=== PATIENT | male | born 1950 | race Caucasian/White ===

== ENCOUNTER 2016-11-11 18:53 | Emergency (ER) | payer MEDICARE ==
[2016-11-11] MEDS ORDERED: HYDROmorphone* 1 MG/ML 1 ML SYR IV ONE ×2 (20:43→22:32)
[2016-11-11] MEDS ORDERED: Ondansetron INJ* 2 MG/ML VIAL IV ONE (20:43)
[2016-11-11 21:01] LABS: Hematocrit 41 % (42-52); Hemoglobin 13.1 g/dl (14.0-18.0); Mean Corpuscular HGB Conc 32 g/dl (31-36); Mean Corpuscular Hemoglobin 29 pg (27-31); Mean Corpuscular Volume 90 fL (80-94); Mean Platelet Volume 8 um3 (7.4-10.4); Red Blood Count 4.52 10^6/ul (4.0-5.4); Red Cell Distribution Width 14 % (10.5-15); White Blood Count 12.8 10^3/ul (3.5-10.8)
[2016-11-11 21:08] LABS: Potassium 4.3 mmol/L (3.5-5.0)
[2016-11-11 21:09] LABS: Albumin 4.3 g/dL (3.2-5.2); BUN/Creatinine Ratio 17.9 (8-20); C Reactive Protein 15.13 mg/L (< 5.00); Calcium 10.5 mg/dL (8.6-10.3); EGFR African American 80.5 (>60); EGFR Non-African American 62.6 (>60); Globulin 4.1 g/dL (2-4); Total Bilirubin 0.4 mg/dL (0.2-1.0); Total Protein 8.4 g/dL (6.4-8.9)
--- NOTE | 2016-11-11 21:58 | RAD ---
Indication: Exquisite LEFT shoulder plain for approximate 2 weeks. Anticoagulated. Previous injury. Decreased range of motion. Comparison: No relevant prior exams available on the [facility] for comparison. Technique: Noncontrast CT LEFT shoulder. Multiplanar reformation. Report: The visualized LEFT lung is remarkable for interstitial fibrosis with peripheral honeycombing and emphysematous change. Negative for LEFT pleural effusion. Median sternotomy wires and postsurgical change of coronary artery bypass. Normal acromioclavicular and glenohumeral joint alignment. Suggestion of a small volume of fluid in the subacromial subdeltoid bursa and small glenohumeral joint effusion. No conspicuous fat fluid level. No fracture evident within the [id number]. Minimal acromioclavicular joint osteophytosis as well as subchondral sclerosis and cystic change. Cystic change at the lesser tuberosity of the humerus consistent with chronic subscapularis tendinopathy. Minimal osteophytosis at the glenohumeral joint. Negative for calcific tendinopathy. Negative for significant rotator cuff muscle atrophy. IMPRESSION: 1. Negative for fracture or dislocation. 2. No compelling evidence for hemarthrosis. 3. Stigmata of chronic subscapularis tendinopathy. 4. Mild acromioclavicular and glenohumeral joint osteoarthritis.
[2016-11-11] MEDS ORDERED: LORazepam INJ* 2 MG/ML 1 ML VIAL IV PUSH ONE (22:34)
[2016-11-11 23:00] VITALS: BP 101/64
[2016-11-11] MEDS ORDERED: oxyCODONE/Acetamin 5/325 MG* TAB PO ONE (23:09)
--- NOTE | 2016-11-11 23:12 | ED ---
Chasidy Bledsoe Alfonso, scribed for Mary Urban MD on 11/11/16 at 2023 . Upper Extremity Pain - HPI Summary HPI Summary: This patient is a 66 year old M presenting [place] [facility] accompanied by with a chief complaint of sharp left shoulder pain since this morning. Pt rates the pain 10/10 in severity. Sx aggravated by touch. Pt denies left bicep pain. He is retired. PMHx of CAD (quadruple bypass one month ago), HTN (prescribed Plavix for which he has since stopped taking), HLD, and DM. - History of Current Complaint Chief Complaint: EDExtremityUpper Stated Complaint: LEFT SHOULDER PAIN Time Seen by Provider: 11/11/16 20:03 Hx Obtained From: Patient Onset/Duration: Started Hours Ago - Earlier today, Still Present Timing: Constant Severity Initially: Severe Severity Currently: Severe Pain Location: Shoulder - Left, Other: - Not at left bicep Character: Sharp Aggravating Factor(s): Other - Touch. Associated Signs & Symptoms: Positive: Other - Negative left bicep pain. - Allergies/Home Medications Allergies/Adverse Reactions: Allergies Allergy/AdvReac Type Severity Reaction Status Date / Time Naproxen [From Aleve] Allergy Intermediate Hives Verified 11/11/16 19:09 PMH/Surg Hx/FS Hx/Imm Hx Endocrine/Hematology History: Reports: Hx Diabetes Denies: Hx Systemic Lupus Erythematosus Cardiovascular History: Reports: Hx Hypertension - controlled with meds Denies: Hx Congestive Heart Failure History: Denies: Hx Dialysis Musculoskeletal History: Denies: Hx Rheumatoid Arthritis - Surgical History Surgery Procedure, Year, and Place: gall bladder 2013 Infectious Disease History: No Infectious Disease History: Denies: Traveled Outside the [place] in Last 30 Days - Family History Known Family History: Positive: Cardiac Disease - Father, Diabetes - Father - Social History Occupation: Retired Alcohol Use: None Hx Substance Use: No Substance Use Type: Reports: None Hx Tobacco Use: No Smoking Status (MU): Never Smoked Tobacco Review of Systems Negative: Fever Positive: Other - Positive left shoulder pain; negative left bicep pain All Other Systems Reviewed And Are Negative: Yes Physical Exam Triage Information Reviewed: Yes Vital Signs On Initial Exam: Initial Vitals Temp Pulse Resp BP Pulse Ox 98.2 F 87 16 130/84 94 11/11/16 19:07 11/11/16 19:07 11/11/16 19:07 11/11/16 19:07 11/11/16 19:07 Vital Signs Reviewed: Yes Appearance: Positive: Well-Appearing, No Pain Distress Skin: Positive: Warm, Skin Color Reflects Adequate Perfusion, Dry Eyes: Positive: EOMI, ARACELI ENT: Positive: Pharynx normal, TMs normal Neck: Positive: Supple, Nontender Respiratory/Lung Sounds: Positive: Clear to Auscultation, Breath Sounds Present. Negative: Rales, Rhonchi, Wheezes Cardiovascular: Positive: RRR, Other - No gallop. Negative: Murmur, Rub Abdomen Description: Positive: Nontender, Soft, Other: - No rebound. Negative: Distended, Guarding Musculoskeletal: Positive: Strength/ROM Intact, Other - Exquisite tender left shoulder. Neurological: Positive: Sensory/Motor Intact, Alert, Oriented to Person Place, Time, CN Intact II-III - 2-12 Psychiatric: Positive: Affect/Mood Appropriate Diagnostics - Vital Signs Vital Signs Temp Pulse Resp BP Pulse Ox 11/11/16 20:04 98.8 F 85 20 160/77 96 11/11/16 19:07 98.2 F 87 16 130/84 94 - Laboratory Lab Results: Lab Results 11/11/16 11/11/16 Range/Units 20:35 20:35 WBC 12.8 H (3.5-10.8) 10^3/ul RBC 4.52 (4.0-5.4) 10^6/ul Hgb 13.1 L (14.0-18.0) g/dl Hct 41 L (42-52) % MCV 90 (80-94) fL MCH 29 (27-31) pg MCHC 32 (31-36) g/dl RDW 14 (10.5-15) % Plt Count 416 (150-450) 10^3/ul MPV 8 (7.4-10.4) um3 Neut % (Auto) 75.4 (38-83) % Lymph % (Auto) 15.1 L (25-47) % Dodge % (Auto) 7.4 (1-9) % Eos % (Auto) 1.7 (0-6) % Baso % (Auto) 0.4 (0-2) % Absolute Neuts (auto) 9.7 H (1.5-7.7) 10^3/ul Absolute Lymphs (auto) 1.9 (1.0-4.8) 10^3/ul Absolute Monos (auto) 0.9 H (0-0.8) 10^3/ul Absolute Eos (auto) 0.2 (0-0.6) 10^3/ul Absolute Basos (auto) 0.1 (0-0.2) 10^3/ul Absolute Nucleated RBC 0 10^3/ul Nucleated RBC % 0 Sodium 132 L (133-145) mmol/L Potassium 4.3 (3.5-5.0) mmol/L Chloride 95 L (101-111) mmol/L Carbon Dioxide 30 (22-32) mmol/L Anion Gap 7 (2-11) mmol/L BUN 21 (6-24) mg/dL Creatinine 1.17 (0.67-1.17) mg/dL Est GFR ( Amer) 80.5 (>60) Est GFR (Non-Af Amer) 62.6 (>60) BUN/Creatinine Ratio 17.9 (8-20) Glucose 188 H (70-100) mg/dL Calcium 10.5 H (8.6-10.3) mg/dL Total Bilirubin 0.40 (0.2-1.0) mg/dL AST 12 L (13-39) U/L ALT 11 (7-52) U/L Alkaline Phosphatase 104 (34-104) U/L C-Reactive Protein 15.13 H (< 5.00) mg/L Total Protein 8.4 (6.4-8.9) g/dL Albumin 4.3 (3.2-5.2) g/dL Globulin 4.1 H (2-4) g/dL Albumin/Globulin Ratio 1.0 (1-3) Result Diagrams: 11/11/16 20:35 11/11/16 20:35 Lab Statement: Any lab studies that have been ordered have been reviewed, and results considered in the medical decision making process. - CT Upper Extremity CT Interpretation Completed By: Radiologist - 1. Negative for fracture or dislocation. 2. No compelling evidence for hemarthrosis. 3. Stigmata of chronic subscapularis tendinopathy. 4. Mild acromioclavicular and glenohumeral joint osteoarthritis. - EKG 1900 Cardiac Rate: NL - BPM 86 EKG Rhythm: Sinus Rhythm EKG Interpretation: T-wave inversion anteriorly and generalized non-specific T- wave changes. Course/Dx - Course Course Of Treatment: Pt with exquisite left shoulder tenderness on blood thinners ct does not show an effusion, case discussed with Dr. Andrew due to concern for septic joint. Her recommendation was that without an effusion this was unlikely. She asked that pt call the office in the am and she will get pt in for an injection. Pt's pain was well controlled with 1mg of dilaudid and 0.5 mg of iv ativan. - Diagnoses Provider Diagnoses: Tendonitis - Physician Notifications Discussed Care of Patient With: Brandie Andrew Time Discussed With Above Provider: 11:04 Instructed by Provider To: Other - Consulted Dr. Andrew (orthopedic) who will see patient tomorrow morning. Discharge - Discharge Plan Condition: Stable Disposition: HOME Prescriptions: Cyclobenzaprine TAB* [Flexeril 10 MG TAB*] 10 mg PO TID PRN #30 tab PRN Reason: Pain oxyCODONE/Acetamin 5/325 MG* [Percocet 5/325 TAB*] 2 tab PO Q4H PRN #30 tab MDD 12 PRN Reason: Pain Patient Education Materials: Tendinitis (ED) Referrals: Ugo Hidalgo JR PA [Primary Care Provider] - 3 Days The documentation as recorded by the Chasidy schaffer Alfonso accurately reflects the service I personally performed and the decisions made by me, Mary Urban MD.
== END 2016-11-11 23:26 | disposition home or self-care (01) ==
LOC: ED 18:53
DX: M75.92 Shoulder lesion, unspecified, left shoulder (principal); I25.10 Atherosclerotic heart disease of native coronary artery without angina pectoris; Z79.02 Long term (current) use of antithrombotics/antiplatelets; E78.5 Hyperlipidemia, unspecified; E11.9 Type 2 diabetes mellitus without complications; I10 Essential (primary) hypertension
CPT/HCPCS: 36415; 80053; 85025; 86140; 93005; 96374; 96375; 96376; 99285; A9270-GY; J1170; J2060; J2405

== ENCOUNTER 2019-09-18 08:20 | Inpatient (IN) ==
[2019-09-18] MEDS ORDERED: Ondansetron 4 mg VIAL 2 MG/ML 2 ml VIAL IV ONE (08:36)
[2019-09-18] MEDS ORDERED: NS 0.9% 1000 ml BAG 1,000 ML IV ONE (08:36)
[2019-09-18] MEDS ORDERED: Morphine 4 MG/ML VIAL (1 ml) IV ONE ×2 (08:36→11:36)
[2019-09-18 09:58] LABS: ABS Lymphocytes 0.5 10^3/ul (1.0-4.8); ABS Monocytes 0.5 10^3/ul (0-0.8); Hematocrit 43 % (42-52); Hemoglobin 14.7 g/dL (14.0-18.0); Lymphocyte % 3.5 %; Mean Corpuscular HGB Conc 34 g/dL (31-36); Mean Corpuscular Hemoglobin 31 pg (27-31); Mean Corpuscular Volume 90 fL (80-94); Mean Platelet Volume 7.8 fL (7.4-10.4); Platelet Count 347 10^3/uL (150-450); Red Blood Count 4.78 10^6 /uL (4.18-5.48); Red Cell Distribution Width 14 % (10-15); White Blood Count 14.6 10^3/uL (3.5-10.8)
[2019-09-18 10:16] LABS: Albumin 3.8 g/dL (3.2-5.2); Albumin/Globulin Ratio 1.2 (1-3); BUN/Creatinine Ratio 19.4 (8-20); Calcium 9.3 mg/dL (8.6-10.3); EGFR African American 86.9 (>60); EGFR Non-African American 71.8 (>60); Globulin 3.3 g/dL (2-4); Potassium 4.4 mmol/L (3.5-5.0); Total Bilirubin 0.7 mg/dL (0.2-1.0); Total Protein 7.1 g/dL (6.4-8.9)
[2019-09-18] MEDS ORDERED: Iodixanol (CONTRAST) 320 MG/ML 100 ML SDV IV ONE (10:25)
[2019-09-18] MEDS ORDERED: Piperacillin/Tazobac ADVAN(*) 3.375 GM in NS 0.9% 100 ml BAG 100 ML IVPB ONE (11:31)
[2019-09-18 12:33] LABS: Magnesium 1.3 mg/dL (1.9-2.7)
[2019-09-18] MEDS ORDERED: Magnesium Sulfate 2 gm BAG 2 GM/50 ML BAG IVPB ONE (12:34)
[2019-09-18] MEDS ORDERED: Magnesium Sulf 4 GM/100 ML IV 4,000 MG/100 ML BAG IVPB ONE (12:37)
[2019-09-18] MEDS ORDERED: Zosyn per Pharmacy NOTE FOLLOW UP SCH (13:00)
[2019-09-18 13:04] LABS: Troponin I 0.03 ng/mL (<0.03)
[2019-09-18] MEDS: Aspirin EC 81 mg TAB.EC (enteric coated) PO SCH (13:58)
[2019-09-18] MEDS: ACIDOPH PARACASEI B LACTIS PO SCH (14:00)
[2019-09-18] MEDS: Multivitamins/Mins AREDS2 (NF) CAP PO SCH (14:00)
[2019-09-18] MEDS: ZOSYN 3.375 GM Q8H per EXTENDED INFUSION IV SCH (16:51)
[2019-09-18] MEDS ORDERED: Senna TAB 8.6 mg TAB PO PRN (17:25)
[2019-09-18] MEDS: Insulin LISPRO 100 units/ml(*) SUBCUT SCH (17:41)
[2019-09-18] MEDS: Morphine 2 MG/ML SYRINGE IV PRN ×2 (17:42→21:50)
[2019-09-19] MEDS: Insulin LISPRO 100 units/ml(*) SUBCUT SCH ×4 (00:04→17:45)
[2019-09-19] MEDS: ZOSYN 3.375 GM Q8H per EXTENDED INFUSION IV SCH ×3 (00:30→17:44)
[2019-09-19] MEDS: Morphine 2 MG/ML SYRINGE IV PRN (03:07)
[2019-09-19 06:20] LABS: ABS Monocytes 0.5 10^3/ul (0-0.8); Hematocrit 39 % (42-52); Hemoglobin 13.3 g/dL (14.0-18.0); Lymphocyte % 6.4 %; Mean Corpuscular HGB Conc 34 g/dL (31-36); Mean Corpuscular Hemoglobin 31 pg (27-31); Mean Corpuscular Volume 90 fL (80-94); Mean Platelet Volume 7.2 fL (7.4-10.4); Platelet Count 270 10^3/uL (150-450); Red Blood Count 4.34 10^6 /uL (4.18-5.48); Red Cell Distribution Width 14 % (10-15); White Blood Count 14.8 10^3/uL (3.5-10.8)
[2019-09-19 06:36] LABS: Troponin I 0.02 ng/mL (<0.03)
[2019-09-19] MEDS ORDERED: Morphine 2 MG/ML SYRINGE IV PRN (07:59)
[2019-09-19 08:19] LABS: Calcium 8.4 mg/dL (8.6-10.3); Potassium 4.5 mmol/L (3.5-5.0)
[2019-09-19 08:24] LABS: BUN/Creatinine Ratio 16.4 (8-20); EGFR African American 50.4 (>60); EGFR Non-African American 41.7 (>60)
[2019-09-19] MEDS: Aspirin EC 81 mg TAB.EC (enteric coated) PO SCH (08:37)
[2019-09-19] MEDS: ACIDOPH PARACASEI B LACTIS PO SCH (08:38)
[2019-09-19] MEDS: Multivitamins/Mins AREDS2 (NF) CAP PO SCH (08:38)
[2019-09-19] MEDS ORDERED: Furosemide 40 mg/4 ml IV VIAL IV SLOW PU ONE (11:11)
[2019-09-19] MEDS ORDERED: Dextrose 50% Syringe 50 ml 25 GM/50 ML SYRINGE IV PUSH PRN (15:25)
[2019-09-19 16:18] LABS: Albumin 3.2 g/dL (3.2-5.2); BUN/Creatinine Ratio 19.3 (8-20); Calcium 8.1 mg/dL (8.6-10.3); EGFR African American 43.7 (>60); EGFR Non-African American 36.1 (>60); Globulin 3.2 g/dL (2-4); Potassium 4.3 mmol/L (3.5-5.0); Total Bilirubin 0.9 mg/dL (0.2-1.0); Total Protein 6.4 g/dL (6.4-8.9)
[2019-09-19] MEDS ORDERED: Furosemide 40 mg/4 ml IV VIAL IV ONE (16:34)
[2019-09-19] MEDS ORDERED: Iodixanol (CONTRAST) 320 MG/ML 100 ML SDV IV ONE (16:51)
[2019-09-19 17:55] LABS: Amylase < 10 U/L (29-103)
[2019-09-20] MEDS ORDERED: Lactated Ringers 1000 ml BAG 1,000 ML IV SCH ×2 (01:00→10:44)
[2019-09-20 01:06] LABS: Hematocrit 36 % (42-52); Hemoglobin 12.2 g/dL (14.0-18.0); Mean Corpuscular HGB Conc 34 g/dL (31-36); Mean Corpuscular Hemoglobin 30 pg (27-31); Mean Corpuscular Volume 90 fL (80-94); Mean Platelet Volume 7.4 fL (7.4-10.4); Platelet Count 248 10^3/uL (150-450); Red Blood Count 4.03 10^6 /uL (4.18-5.48); Red Cell Distribution Width 14 % (10-15); White Blood Count 16.9 10^3/uL (3.5-10.8)
[2019-09-20 01:22] LABS: Albumin 3.1 g/dL (3.2-5.2); BUN/Creatinine Ratio 19.9 (8-20); Calcium 8.2 mg/dL (8.6-10.3); EGFR African American 40.2 (>60); EGFR Non-African American 33.2 (>60); Potassium 4.1 mmol/L (3.5-5.0); Total Bilirubin 0.8 mg/dL (0.2-1.0); Total Protein 6.1 g/dL (6.4-8.9)
[2019-09-20 01:38] LABS: Magnesium 1.9 mg/dL (1.9-2.7)
[2019-09-20 01:39] LABS: ABS Lymphocytes 0.7 10^3/ul (1.0-4.8); ABS Monocytes 0.5 10^3/ul (0-0.8); Lymphocyte % 4.1 %
[2019-09-20] MEDS: Lactated Ringers 1000 ml BAG 1,000 ML IV SCH ×3 (02:02→05:27)
[2019-09-20] MEDS ORDERED: NS 0.9% 1000 ML/HR X 1 BAG (TOTAL 1000 ML) IV ONE (02:45)
[2019-09-20 03:00] LABS: Urine Appearance Cloudy; Urine Bilirubin Negative (Negative); Urine Blood Negative (Negative); Urine Color Yellow; Urine Glucose Negative (Negative); Urine Ketones Negative (Negative); Urine Nitrite Negative (Negative); Urine Protein Negative (Negative); Urine Specific Gravity 1.031 (1.010-1.030); Urine Urobilinogen Negative (Negative)
[2019-09-20] MEDS ORDERED: Lactated Ringers 1000 ml BAG 1,000 ML IV ONE ×2 (03:00→05:00)
[2019-09-20 05:48] LABS: ABS Lymphocytes 0.7 10^3/ul (1.0-4.8); ABS Monocytes 0.6 10^3/ul (0-0.8); Hematocrit 34 % (42-52); Hemoglobin 11.5 g/dL (14.0-18.0); Lymphocyte % 4.7 %; Mean Corpuscular HGB Conc 33 g/dL (31-36); Mean Corpuscular Hemoglobin 30 pg (27-31); Mean Corpuscular Volume 90 fL (80-94); Platelet Count 196 10^3/uL (150-450); Red Cell Distribution Width 14 % (10-15); White Blood Count 14.8 10^3/uL (3.5-10.8)
[2019-09-20] MEDS ORDERED: Norepinephrine 16MCG/ML IVPRE 4,000 MCG/250 ML BAG IV SCH ×2 (06:00→10:41)
[2019-09-20 06:03] LABS: BUN/Creatinine Ratio 20.4 (8-20); Calcium 7.8 mg/dL (8.6-10.3); EGFR African American 43.9 (>60); EGFR Non-African American 36.3 (>60); Potassium 4.1 mmol/L (3.5-5.0)
[2019-09-20] MEDS ORDERED: Insulin GLARGINE 100 un/ml (*) 10 ml VIAL SUBCUT SCH (09:00)
[2019-09-20] MEDS ORDERED: Furosemide 40 mg/4 ml IV VIAL IV SCH (09:00)
[2019-09-20] MEDS: Insulin LISPRO 100 units/ml(*) SUBCUT SCH ×2 (09:14→18:08)
[2019-09-20] MEDS: ACIDOPH PARACASEI B LACTIS PO SCH (09:15)
[2019-09-20] MEDS: Multivitamins/Mins AREDS2 (NF) CAP PO SCH (09:16)
[2019-09-20] MEDS: Aspirin EC 81 mg TAB.EC (enteric coated) PO SCH (09:16)
[2019-09-20] MEDS: ZOSYN 3.375 GM Q8H per EXTENDED INFUSION IV SCH ×3 (09:23→19:48)
[2019-09-20] MEDS ORDERED: fentaNYL 250 mcg/5 ml 50 MCG/ML 5 ml VIAL (250 MCG) ONE (10:38)
[2019-09-20] MEDS ORDERED: Midazolam 2 mg/2 ml VIAL 1 mg/ml 2 ml VIAL (2 mg) ONE (10:38)
[2019-09-20] MEDS ORDERED: Rocuronium 50 mg VIAL 10 mg/ml 5 ml VIAL (50 mg) ONE ×2 (10:38→10:39)
[2019-09-20] MEDS ORDERED: Propofol 10 MG/ML 20 ML BTL ONE ×2 (10:38→14:40)
[2019-09-20] MEDS ORDERED: Lidocaine 2% PF 5 ML VIAL ONE ×2 (10:38→11:24)
[2019-09-20] MEDS ORDERED: Succinylcholine 200 mg VIAL 20 mg/ml 10 ml VIAL (200 mg) ONE (10:44)
[2019-09-20] MEDS ORDERED: Bupivacaine 0.25% EPI 200,000 30 ML SDV ONE (10:47)
[2019-09-20] MEDS ORDERED: EPHEDrine (Pressors) 50 MG/ML VIAL ONE (10:47)
[2019-09-20] MEDS ORDERED: Sodium Chloride 0.9% 10 ML ONE (10:47)
[2019-09-20] MEDS ORDERED: Phenylephrine IV 10 MG/ML 1 ml VIAL ONE (10:47)
[2019-09-20] MEDS ORDERED: Etomidate 20 mg/10 ml 2 MG/ML 10 ml VIAL ONE (11:26)
[2019-09-20] MEDS ORDERED: Insulin LISPRO 100 units/ml(*) SUBCUT SCH (11:33)
[2019-09-20] MEDS ORDERED: HYDROmorphone 1 MG/1 ML SYRINGE ONE (13:45)
[2019-09-20] MEDS ORDERED: Propofol 10 mg/ml 100 ML BTL 100 ML ONE (15:07)
[2019-09-20] MEDS ORDERED: NS 0.9% 500 ml BAG 500 ML IV PRN (15:28)
[2019-09-20] MEDS: Propofol 10 mg/ml 100 ML BTL 100 ML IV SCH ×3 (18:08→23:54)
[2019-09-20] MEDS: Heparin 5000 UNITS/ML VIAL(*) 1 ml vial SUBCUT SCH ×2 (18:08→22:42)
[2019-09-20] MEDS: NS 0.9% 1000 ml BAG 1,000 ML IV SCH (18:09)
[2019-09-20] MEDS: HYDROmorphone 1 MG/1 ML SYRINGE IV PRN (20:15)
[2019-09-20] MEDS ORDERED: Dextran 70/Hypromellose Tears Eye Drops 15 ml BTL (for Artificials Tears) BOTH EYES PRN (22:31)
[2019-09-20] MEDS: Chlorhexidine MOUTHWASH 0.12% 15 ML UDC TOPICAL SCH ×3 (22:41→22:42)
[2019-09-21] MEDS: Insulin LISPRO 100 units/ml(*) SUBCUT SCH ×5 (00:09→18:29)
[2019-09-21] MEDS: HYDROmorphone 1 MG/1 ML SYRINGE IV PRN ×2 (00:12→05:26)
[2019-09-21] MEDS: Propofol 10 mg/ml 100 ML BTL 100 ML IV SCH ×2 (03:19→07:44)
[2019-09-21] MEDS: ZOSYN 3.375 GM Q8H per EXTENDED INFUSION IV SCH ×3 (03:20→20:03)
[2019-09-21] MEDS: Chlorhexidine MOUTHWASH 0.12% 15 ML UDC TOPICAL SCH ×4 (03:22→16:43)
[2019-09-21] MEDS: NS 0.9% 1000 ml BAG 1,000 ML IV SCH (05:28)
[2019-09-21 05:38] LABS: ABS Eosinophils 0.1 10^3/ul (0-0.6); ABS Monocytes 0.6 10^3/ul (0-0.8); Eosinophil % 0.5 %; Hematocrit 33 % (42-52); Mean Corpuscular HGB Conc 34 g/dL (31-36); Mean Corpuscular Hemoglobin 30 pg (27-31); Mean Corpuscular Volume 90 fL (80-94); Mean Platelet Volume 7.4 fL (7.4-10.4); Platelet Count 207 10^3/uL (150-450); Red Blood Count 3.64 10^6 /uL (4.18-5.48); Red Cell Distribution Width 14 % (10-15); White Blood Count 11.6 10^3/uL (3.5-10.8)
[2019-09-21] MEDS: Heparin 5000 UNITS/ML VIAL(*) 1 ml vial SUBCUT SCH ×2 (05:42→14:45)
[2019-09-21 06:02] LABS: BUN/Creatinine Ratio 22.4 (8-20); Calcium 8.2 mg/dL (8.6-10.3); EGFR African American 55.5 (>60); EGFR Non-African American 45.8 (>60); Phosphorus 3.6 mg/dL (2.5-5.0); Potassium 4.1 mmol/L (3.5-5.0)
[2019-09-21] MEDS: Pantoprazole VIAL 40 MG VIAL IV SCH (08:27)
[2019-09-21] MEDS: Morphine 2 MG/ML SYRINGE IV PRN (15:20)
[2019-09-22] MEDS: Heparin 5000 UNITS/ML VIAL(*) 1 ml vial SUBCUT SCH ×4 (00:46→21:28)
[2019-09-22] MEDS: Insulin LISPRO 100 units/ml(*) SUBCUT SCH ×4 (00:53→18:24)
[2019-09-22] MEDS: NS 0.9% 1000 ml BAG 1,000 ML IV SCH (01:57)
[2019-09-22] MEDS: ZOSYN 3.375 GM Q8H per EXTENDED INFUSION IV SCH ×3 (04:23→21:03)
[2019-09-22 04:52] LABS: ABS Lymphocytes 0.9 10^3/ul (1.0-4.8); ABS Monocytes 0.5 10^3/ul (0-0.8); Eosinophil % 0.2 %; Hematocrit 33 % (42-52); Hemoglobin 11.2 g/dL (14.0-18.0); Mean Corpuscular HGB Conc 34 g/dL (31-36); Mean Corpuscular Hemoglobin 31 pg (27-31); Mean Corpuscular Volume 90 fL (80-94); Mean Platelet Volume 7.6 fL (7.4-10.4); Nucleated Red Blood Cells % 0.1; Platelet Count 226 10^3/uL (150-450); Red Blood Count 3.64 10^6 /uL (4.18-5.48); Red Cell Distribution Width 14 % (10-15); White Blood Count 9.5 10^3/uL (3.5-10.8)
[2019-09-22 05:09] LABS: BUN/Creatinine Ratio 20.2 (8-20); Calcium 8.3 mg/dL (8.6-10.3); EGFR African American 85.9 (>60); Potassium 4.1 mmol/L (3.5-5.0)
[2019-09-22] MEDS: Pantoprazole VIAL 40 MG VIAL IV SCH (08:42)
[2019-09-22] MEDS: Morphine 2 MG/ML SYRINGE IV PRN ×2 (09:45→15:51)
[2019-09-22 11:57] LABS: Troponin I 0.03 ng/mL (<0.03)
[2019-09-22] MEDS ORDERED: D5W 1/2 NS KCl 20 meq 1000 ml 1,000 ML IV SCH (12:00)
[2019-09-22 12:04] LABS: Magnesium 1.8 mg/dL (1.9-2.7)
[2019-09-22] MEDS: Metoprolol Tartrate 5 mg VIAL 5 ml VIAL (1 mg/ml) IV SCH ×2 (12:51→18:47)
[2019-09-22] MEDS ORDERED: Magnesium Sulfate IV 3 GM in NS 0.9% 100 ml BAG 100 ML IVPB ONE (18:31)
[2019-09-23] MEDS: Metoprolol Tartrate 5 mg VIAL 5 ml VIAL (1 mg/ml) IV SCH ×5 (00:35→23:31)
[2019-09-23] MEDS: Insulin LISPRO 100 units/ml(*) SUBCUT SCH ×5 (00:45→23:30)
[2019-09-23 00:51] LABS: Troponin I 0.03 ng/mL (<0.03)
[2019-09-23] MEDS: Ondansetron 4 mg VIAL 2 MG/ML 2 ml VIAL IV PRN (01:32)
[2019-09-23] MEDS: ZOSYN 3.375 GM Q8H per EXTENDED INFUSION IV SCH ×3 (05:58→19:42)
[2019-09-23] MEDS: Heparin 5000 UNITS/ML VIAL(*) 1 ml vial SUBCUT SCH ×3 (06:23→22:02)
[2019-09-23 06:40] LABS: ABS Eosinophils 0.1 10^3/ul (0-0.6); ABS Lymphocytes 1.1 10^3/ul (1.0-4.8); ABS Monocytes 0.6 10^3/ul (0-0.8); Eosinophil % 1.9 %; Hematocrit 34 % (42-52); Hemoglobin 11.4 g/dL (14.0-18.0); Lymphocyte % 15.2 %; Mean Corpuscular HGB Conc 34 g/dL (31-36); Mean Corpuscular Hemoglobin 31 pg (27-31); Mean Corpuscular Volume 91 fL (80-94); Mean Platelet Volume 7.4 fL (7.4-10.4); Platelet Count 237 10^3/uL (150-450); Red Blood Count 3.73 10^6 /uL (4.18-5.48); Red Cell Distribution Width 14 % (10-15); White Blood Count 7.3 10^3/uL (3.5-10.8)
[2019-09-23 07:04] LABS: BUN/Creatinine Ratio 15.5 (8-20); Calcium 8.6 mg/dL (8.6-10.3); EGFR Non-African American 90.9 (>60); Potassium 4.1 mmol/L (3.5-5.0)
[2019-09-23] MEDS: Pantoprazole VIAL 40 MG VIAL IV SCH (08:20)
[2019-09-23 10:06] LABS: Phosphorus 2.4 mg/dL (2.5-5.0)
[2019-09-23] MEDS: D5W 1/2 NS KCl 20 meq 1000 ml 1,000 ML IV SCH (13:14)
[2019-09-23] MEDS: Morphine 2 MG/ML SYRINGE IV PRN ×2 (17:11→23:21)
[2019-09-24] MEDS: ZOSYN 3.375 GM Q8H per EXTENDED INFUSION IV SCH ×2 (03:46→13:26)
[2019-09-24] MEDS: D5W 1/2 NS KCl 20 meq 1000 ml 1,000 ML IV SCH (03:46)
[2019-09-24] MEDS: Heparin 5000 UNITS/ML VIAL(*) 1 ml vial SUBCUT SCH ×2 (06:20→13:15)
[2019-09-24] MEDS: Metoprolol Tartrate 5 mg VIAL 5 ml VIAL (1 mg/ml) IV SCH ×2 (06:29→13:15)
[2019-09-24] MEDS: Morphine 2 MG/ML SYRINGE IV PRN (06:29)
[2019-09-24 06:35] LABS: ABS Eosinophils 0.2 10^3/ul (0-0.6); ABS Lymphocytes 1.2 10^3/ul (1.0-4.8); ABS Monocytes 0.7 10^3/ul (0-0.8); Eosinophil % 3.4 %; Hematocrit 33 % (42-52); Hemoglobin 11.2 g/dL (14.0-18.0); Lymphocyte % 17.3 %; Mean Corpuscular HGB Conc 34 g/dL (31-36); Mean Corpuscular Hemoglobin 31 pg (27-31); Mean Corpuscular Volume 90 fL (80-94); Mean Platelet Volume 6.9 fL (7.4-10.4); Nucleated Red Blood Cells % 0.2; Platelet Count 271 10^3/uL (150-450); Red Blood Count 3.66 10^6 /uL (4.18-5.48); Red Cell Distribution Width 13 % (10-15); White Blood Count 7.1 10^3/uL (3.5-10.8)
[2019-09-24 06:51] LABS: BUN/Creatinine Ratio 11.1 (8-20); Calcium 8.4 mg/dL (8.6-10.3); EGFR African American 114.7 (>60); EGFR Non-African American 94.8 (>60); Magnesium 1.5 mg/dL (1.9-2.7); Potassium 3.8 mmol/L (3.5-5.0)
[2019-09-24] MEDS: Insulin LISPRO 100 units/ml(*) SUBCUT SCH ×4 (07:02→20:11)
[2019-09-24] MEDS ORDERED: Magnesium Sulf 4 GM/100 ML IV 4,000 MG/100 ML BAG IVPB ONE (07:07)
[2019-09-24] MEDS: Pantoprazole VIAL 40 MG VIAL IV SCH (08:15)
[2019-09-24] MEDS ORDERED: Furosemide 20 mg/2 ml IV VIAL IV SLOW PU ONE (13:11)
[2019-09-24] MEDS ORDERED: Enoxaparin 40 MG/0.4 ML SYR(*) SUBCUT SCH (14:00)
[2019-09-24] MEDS: Enoxaparin 40 MG/0.4 ML SYR(*) SUBCUT SCH (20:11)
[2019-09-25 06:20] LABS: BUN/Creatinine Ratio 10.4 (8-20); Calcium 8.5 mg/dL (8.6-10.3); EGFR African American 121.6 (>60); EGFR Non-African American 100.5 (>60); Magnesium 1.7 mg/dL (1.9-2.7); Potassium 3.9 mmol/L (3.5-5.0)
[2019-09-25] MEDS: Insulin LISPRO 100 units/ml(*) SUBCUT SCH ×4 (07:33→21:11)
[2019-09-25] MEDS: Pantoprazole VIAL 40 MG VIAL IV SCH (08:18)
[2019-09-25] MEDS ORDERED: Magnesium Sulfate 2 gm BAG 2 GM/50 ML BAG IVPB ONE (17:25)
[2019-09-25] MEDS: Enoxaparin 40 MG/0.4 ML SYR(*) SUBCUT SCH (20:34)
[2019-09-26] MEDS: Ondansetron 4 mg VIAL 2 MG/ML 2 ml VIAL IV PRN (02:57)
[2019-09-26 08:15] LABS: ABS Eosinophils 0.2 10^3/ul (0-0.6); ABS Lymphocytes 1.4 10^3/ul (1.0-4.8); ABS Monocytes 0.6 10^3/ul (0-0.8); Eosinophil % 2.4 %; Hematocrit 34 % (42-52); Hemoglobin 11.4 g/dL (14.0-18.0); Lymphocyte % 18.8 %; Mean Corpuscular HGB Conc 34 g/dL (31-36); Mean Corpuscular Hemoglobin 30 pg (27-31); Mean Corpuscular Volume 89 fL (80-94); Mean Platelet Volume 7.2 fL (7.4-10.4); Nucleated Red Blood Cells % 0.1; Platelet Count 388 10^3/uL (150-450); Red Blood Count 3.78 10^6 /uL (4.18-5.48); Red Cell Distribution Width 14 % (10-15); White Blood Count 7.3 10^3/uL (3.5-10.8)
[2019-09-26 08:33] LABS: BUN/Creatinine Ratio 10.1 (8-20); Calcium 8.6 mg/dL (8.6-10.3); EGFR Non-African American 97.5 (>60); Magnesium 1.6 mg/dL (1.9-2.7)
[2019-09-26] MEDS: Insulin LISPRO 100 units/ml(*) SUBCUT SCH ×2 (09:01→11:33)
[2019-09-26] MEDS: Pantoprazole VIAL 40 MG VIAL IV SCH (09:15)
[2019-09-26 13:40] VITALS: BP 155/57
== END 2019-09-26 02:20 | disposition home or self-care (01) | DRG 329 ==
LOC: ED 08:20 → MED 11:51 → ICU 09-20 00:24 → SSU 09-21 22:42 → MEDTELE 09-22 11:51
PROVIDERS: ADMIT Internal Medicine; ATTEND Surgery

== ENCOUNTER 2019-10-16 19:40 | Inpatient (IN) ==
[2019-10-16 20:49] LABS: ABS Basophils 0.1 10^3/ul (0-0.2); ABS Eosinophils 0.2 10^3/ul (0-0.6); ABS Lymphocytes 1.9 10^3/ul (1.0-4.8); Eosinophil % 1.1 %; Hematocrit 34 % (42-52); Hemoglobin 11.8 g/dL (14.0-18.0); Lymphocyte % 11.8 %; Mean Corpuscular HGB Conc 35 g/dL (31-36); Mean Corpuscular Hemoglobin 30 pg (27-31); Mean Corpuscular Volume 86 fL (80-94); Mean Platelet Volume 6.8 fL (7.4-10.4); Platelet Count 477 10^3/uL (150-450); Red Blood Count 3.95 10^6 /uL (4.18-5.48); Red Cell Distribution Width 15 % (10-15); White Blood Count 16.2 10^3/uL (3.5-10.8)
[2019-10-16 20:56] LABS: INR 1.36 (0.82-1.09)
[2019-10-16 21:07] LABS: Albumin 3.1 g/dL (3.2-5.2); Albumin/Globulin Ratio 0.8 (1-3); C Reactive Protein 168.28 mg/L (<8.01); Calcium 9.2 mg/dL (8.6-10.3); EGFR Non-African American 90.9 (>60); Globulin 4.1 g/dL (2-4); Potassium 4.2 mmol/L (3.5-5.0); Total Bilirubin 0.4 mg/dL (0.2-1.0); Total Protein 7.2 g/dL (6.4-8.9)
[2019-10-16] MEDS ORDERED: NS 0.9% 1000 ml BAG 1,000 ML IV ONE (21:20)
[2019-10-16] MEDS ORDERED: Iodixanol (CONTRAST) 320 MG/ML 100 ML SDV IV ONE (21:27)
[2019-10-16 22:28] LABS: Activated Partial Thrombo Time 33.6 seconds (26.0-38.0)
[2019-10-17] MEDS ORDERED: Piperacillin/Tazobac ADVAN(*) 3.375 GM in NS 0.9% 100 ml BAG 100 ML IVPB ONE ×2 (00:22→01:49)
[2019-10-17 00:59] LABS: Urine Appearance Clear; Urine Bilirubin Negative (Negative); Urine Blood Negative (Negative); Urine Color Yellow; Urine Glucose Negative (Negative); Urine Ketones Negative (Negative); Urine Nitrite Negative (Negative); Urine Protein 1+(30 mg/dL) (Negative); Urine Specific Gravity 1.026 (1.010-1.030); Urine Urobilinogen Negative (Negative)
[2019-10-17 01:12] LABS: Urine Bacteria Absent (Absent); Urine Red Blood Cell Trace(0-2/hpf) (Absent); Urine White Blood Cell Trace(0-5/hpf) (Absent)
[2019-10-17] MEDS ORDERED: Dextrose 50% Syringe 50 ml 25 GM/50 ML SYRINGE IV PUSH PRN (01:34)
[2019-10-17] MEDS ORDERED: Metoprolol Tartrate 5 mg VIAL 5 ml VIAL (1 mg/ml) IV SCH (02:00)
[2019-10-17] MEDS ORDERED: Zosyn per Pharmacy NOTE FOLLOW UP SCH (02:00)
[2019-10-17 02:38] LABS: Magnesium 1.4 mg/dL (1.9-2.7)
[2019-10-17] MEDS: ZOSYN 3.375 GM Q8H per EXTENDED INFUSION IV SCH ×3 (05:41→22:07)
[2019-10-17] MEDS: Insulin LISPRO 100 units/ml(*) SUBCUT SCH ×3 (05:55→18:08)
[2019-10-17] MEDS: Metoprolol Tartrate 5 mg VIAL 5 ml VIAL (1 mg/ml) IV SCH ×3 (06:41→18:19)
[2019-10-17] MEDS ORDERED: Magnesium Sulfate 2 gm BAG 2 GM/50 ML BAG IVPB ONE (08:19)
[2019-10-17] MEDS ORDERED: fentaNYL 100 mcg/2 ml 50 MCG/ML VIAL ONE (12:58)
[2019-10-18] MEDS: Insulin LISPRO 100 units/ml(*) SUBCUT SCH ×3 (00:24→13:04)
[2019-10-18] MEDS: Metoprolol Tartrate 5 mg VIAL 5 ml VIAL (1 mg/ml) IV SCH ×3 (00:25→13:04)
[2019-10-18 05:27] LABS: ABS Eosinophils 0.4 10^3/ul (0-0.6); ABS Lymphocytes 1.6 10^3/ul (1.0-4.8); ABS Monocytes 0.5 10^3/ul (0-0.8); Eosinophil % 3.8 %; Hematocrit 29 % (42-52); Hemoglobin 10.2 g/dL (14.0-18.0); Lymphocyte % 16.1 %; Mean Corpuscular HGB Conc 35 g/dL (31-36); Mean Corpuscular Hemoglobin 30 pg (27-31); Mean Corpuscular Volume 86 fL (80-94); Mean Platelet Volume 7.2 fL (7.4-10.4); Platelet Count 425 10^3/uL (150-450); Red Blood Count 3.41 10^6 /uL (4.18-5.48); Red Cell Distribution Width 15 % (10-15); White Blood Count 9.6 10^3/uL (3.5-10.8)
[2019-10-18] MEDS: ZOSYN 3.375 GM Q8H per EXTENDED INFUSION IV SCH (06:02)
[2019-10-18] MEDS ORDERED: Morphine 2 MG/ML SYRINGE IV PRN (11:00)
[2019-10-18 11:40] VITALS: BP 146/66
[2019-10-18 13:43] LABS: BUN/Creatinine Ratio 15.5 (8-20); EGFR Non-African American 90.9 (>60); Potassium 4.4 mmol/L (3.5-5.0)
== END 2019-10-18 14:30 | disposition home or self-care (01) | DRG 373 ==
LOC: ED 19:40 → SSU 10-17 02:14
PROVIDERS: ADMIT Surgery; ATTEND Surgery

== ENCOUNTER 2020-11-10 22:02 | Inpatient (IN) ==
[2020-11-10 23:10] LABS: ABS Basophils 0.1 10^3/ul (0-0.2); ABS Eosinophils 0.1 10^3/ul (0-0.6); ABS Lymphocytes 1.3 10^3/ul (1.0-4.8); ABS Monocytes 0.8 10^3/ul (0-0.8); Eosinophil % 1.2 %; Hematocrit 39 % (42-52); Hemoglobin 13.2 g/dL (14.0-18.0); Lymphocyte % 12.4 %; Mean Corpuscular HGB Conc 34 g/dL (31-36); Mean Corpuscular Hemoglobin 31 pg (27-31); Mean Corpuscular Volume 91 fL (80-94); Platelet Count 257 10^3/uL (150-450); Red Blood Count 4.32 10^6 /uL (4.18-5.48); Red Cell Distribution Width 18 % (10-15); White Blood Count 10.3 10^3/uL (3.5-10.8)
[2020-11-10 23:28] LABS: ALT 21 U/L (7-52); AST 16 U/L (13-39); Albumin 3.4 g/dL (3.2-5.2); Albumin/Globulin Ratio 0.9 (1-3); Alkaline Phosphatase 149 U/L (35-149); Anion Gap 9 mmol/L (2-11); Blood Urea Nitrogen 24 mg/dL (6-24); CO2 Carbon Dioxide 23 mmol/L (22-32); Calcium 8.8 mg/dL (8.6-10.3); Chloride 105 mmol/L (101-111); EGFR African American 80.3 (>60); EGFR Non-African American 66.4 (>60); Globulin 3.6 g/dL (2-4); Glucose 140 mg/dL (70-100); Indirect Bilirubin 0.3 mg/dL (0.3-1.0); Lipase < 10 U/L (11.0-82.0); Magnesium 1.4 mg/dL (1.9-2.7); Potassium 4.2 mmol/L (3.5-5.0); Sodium 137 mmol/L (135-145)
[2020-11-10 23:30] LABS: Troponin I 0.01 ng/mL (<0.03)
[2020-11-10] MEDS ORDERED: Azithromycin 500 mg/250 ml NS 500 MG/250 ML BAG IVPB ONE (23:37)
[2020-11-10] MEDS ORDERED: cefTRIAXone 1 gm/50 mL NS BAG 1 GM/50 ML BAG IVPB ONE (23:37)
[2020-11-11] MEDS ORDERED: Ondansetron 4 mg VIAL 2 MG/ML 2 ml VIAL IV PRN (00:17)
[2020-11-11] MEDS ORDERED: Albuterol 2.5mg/3 ml (0.083%) NEB.SOLN INH PRN (00:19)
[2020-11-11] MEDS ORDERED: Polyethylene Glycol 3350 17 GM PACKET PO PRN (00:29)
[2020-11-11] MEDS ORDERED: Furosemide 40 mg/4 ml IV VIAL IV SLOW PU ONE (00:29)
[2020-11-11 00:45] LABS: Venous Bicarbonate HCO3 25.4 mmol/L (24-28)
[2020-11-11 01:03] LABS: Influenza A Molecular Negative (Negative); Influenza B Molecular Negative (Negative)
[2020-11-11] MEDS ORDERED: Dextrose 50% Syringe 50 ml 25 GM/50 ML SYRINGE IV PUSH PRN (01:18)
[2020-11-11] MEDS ORDERED: Magnesium Sulfate IV 3 GM in NS 0.9% 100 ml BAG 100 ML IVPB ONE (01:25)
[2020-11-11] MEDS: DOXYcycline 100 MG in NS 0.9% 250 ml 250 ML IVPB SCH ×2 (03:27→20:26)
[2020-11-11] MEDS: Enoxaparin 40 MG/0.4 ML SYR SUBCUT SCH ×2 (03:27→21:53)
[2020-11-11] MEDS: methylPREDNISolone 125 mg 2 ML VIAL IV SCH ×3 (03:27→21:50)
[2020-11-11] MEDS: Albuterol/Ipratropium NEB.SOL (2.5/0.5 MG) 3 ML NEB.SOLN INH SCH ×2 (03:37→08:37)
[2020-11-11 06:40] LABS: Hematocrit 39 % (42-52); Hemoglobin 13.2 g/dL (14.0-18.0); Mean Corpuscular HGB Conc 34 g/dL (31-36); Mean Corpuscular Hemoglobin 31 pg (27-31); Mean Corpuscular Volume 91 fL (80-94); Mean Platelet Volume 8.6 fL (7.4-10.4); Platelet Count 289 10^3/uL (150-450); Red Blood Count 4.28 10^6 /uL (4.18-5.48); Red Cell Distribution Width 18 % (10-15); White Blood Count 9.4 10^3/uL (3.5-10.8)
[2020-11-11 07:22] LABS: Anion Gap 7 mmol/L (2-11); Blood Urea Nitrogen 23 mg/dL (6-24); CO2 Carbon Dioxide 25 mmol/L (22-32); Calcium 8.8 mg/dL (8.6-10.3); Chloride 103 mmol/L (101-111); EGFR African American 91.8 (>60); EGFR Non-African American 75.8 (>60); Glucose 105 mg/dL (70-100); Sodium 135 mmol/L (135-145)
[2020-11-11 08:36] LABS: Magnesium 2.2 mg/dL (1.9-2.7); Potassium Redraw 4.9 mmol/L (3.5-5.0)
[2020-11-11] MEDS ORDERED: Albuterol/Ipratropium NEB.SOL (2.5/0.5 MG) 3 ML NEB.SOLN INH PRN (08:37)
[2020-11-11] MEDS: Aspirin EC 81 mg TAB.EC (enteric coated) PO SCH (08:47)
[2020-11-11] MEDS: PIRFENIDONE 267 MG PO SCH ×3 (08:47→20:33)
[2020-11-11 09:44] LABS: Phosphorus 4.4 mg/dL (2.5-5.0)
[2020-11-11] MEDS ORDERED: Furosemide 20 mg/2 ml IV VIAL IV ONE (11:01)
[2020-11-11] MEDS: cefTRIAXone 1 gm/50 mL NS BAG 1 GM/50 ML BAG IVPB SCH (21:48)
[2020-11-12 05:48] LABS: ABS Lymphocytes 0.6 10^3/ul (1.0-4.8); ABS Monocytes 0.2 10^3/ul (0-0.8); ABS Neutrophils 5.8 10^3/ul (1.5-7.7); Hematocrit 38 % (42-52); Hemoglobin 12.5 g/dL (14.0-18.0); Lymphocyte % 9.7 %; Mean Corpuscular HGB Conc 33 g/dL (31-36); Mean Corpuscular Hemoglobin 30 pg (27-31); Mean Corpuscular Volume 90 fL (80-94); Mean Platelet Volume 7.9 fL (7.4-10.4); Platelet Count 243 10^3/uL (150-450); Red Blood Count 4.17 10^6 /uL (4.18-5.48); Red Cell Distribution Width 17 % (10-15); White Blood Count 6.6 10^3/uL (3.5-10.8)
[2020-11-12 06:03] LABS: C Reactive Protein 9.44 mg/L (<8.01); Calcium 9.1 mg/dL (8.6-10.3); EGFR African American 81.2 (>60); EGFR Non-African American 67.1 (>60)
[2020-11-12] MEDS: methylPREDNISolone 125 mg 2 ML VIAL IV SCH (06:12)
[2020-11-12 06:14] LABS: Potassium 5.1 mmol/L (3.5-5.0)
[2020-11-12] MEDS: Aspirin EC 81 mg TAB.EC (enteric coated) PO SCH (09:57)
[2020-11-12] MEDS: DOXYcycline 100 MG in NS 0.9% 250 ml 250 ML IVPB SCH ×2 (09:59→20:03)
[2020-11-12] MEDS ORDERED: Magnesium Hydroxide LIQ 30 ML UDC PO PRN (10:03)
[2020-11-12] MEDS: PIRFENIDONE 267 MG PO SCH ×3 (10:09→22:46)
[2020-11-12 16:02] LABS: CO2 Carbon Dioxide 24 mmol/L (22-32); Calcium 9.1 mg/dL (8.6-10.3); Chloride 100 mmol/L (101-111); Sodium 131 mmol/L (135-145)
[2020-11-12 16:08] LABS: Blood Urea Nitrogen 37 mg/dL (6-24); EGFR African American 81.2 (>60); EGFR Non-African American 67.1 (>60); Glucose 382 mg/dL (70-100)
[2020-11-12 16:32] LABS: Anion Gap 7 mmol/L (2-11)
[2020-11-12] MEDS ORDERED: Insulin ISOPH/REG 70/30 SUBCUT SCH (17:00)
[2020-11-12] MEDS ORDERED: Sodium Polystyrene ORAL.SUSP 15 GM/60 ML BTL PO ONE (17:49)
[2020-11-12] MEDS: cefTRIAXone 1 gm/50 mL NS BAG 1 GM/50 ML BAG IVPB SCH (21:38)
[2020-11-12] MEDS: Enoxaparin 40 MG/0.4 ML SYR SUBCUT SCH (21:38)
[2020-11-13 06:12] LABS: Calcium 9.2 mg/dL (8.6-10.3); EGFR Non-African American 67.8 (>60); Potassium 4.4 mmol/L (3.5-5.0)
[2020-11-13] MEDS ORDERED: Insulin ISOPH/REG 70/30 SUBCUT SCH (08:00)
[2020-11-13] MEDS: Aspirin EC 81 mg TAB.EC (enteric coated) PO SCH (08:35)
[2020-11-13] MEDS: DOXYcycline 100 MG in NS 0.9% 250 ml 250 ML IVPB SCH (08:37)
[2020-11-13] MEDS: PIRFENIDONE 267 MG PO SCH ×2 (08:43→12:45)
[2020-11-13 11:43] VITALS: BP 123/61
== END 2020-11-13 13:25 | disposition home or self-care (01) | DRG 196 ==
LOC: ED 22:02 → ICU 11-11 00:17 → MED 11-11 18:33
PROVIDERS: ADMIT Internal Medicine; ATTEND Hospitalist

== ENCOUNTER 2020-12-16 16:29 | Inpatient (IN) ==
[2020-12-16 16:56] LABS: ABS Eosinophils 0.1 10^3/ul (0-0.6); ABS Lymphocytes 1.3 10^3/ul (1.0-4.8); ABS Monocytes 0.6 10^3/ul (0-0.8); ABS Neutrophils 7.4 10^3/ul (1.5-7.7); Eosinophil % 0.7 %; Hematocrit 43 % (42-52); Hemoglobin 13.7 g/dL (14.0-18.0); Lymphocyte % 13.5 %; Mean Corpuscular HGB Conc 32 g/dL (31-36); Mean Corpuscular Hemoglobin 29 pg (27-31); Mean Corpuscular Volume 91 fL (80-94); Mean Platelet Volume 7.9 fL (7.4-10.4); Platelet Count 331 10^3/uL (150-450); Red Blood Count 4.68 10^6 /uL (4.18-5.48); Red Cell Distribution Width 16 % (10-15); White Blood Count 9.4 10^3/uL (3.5-10.8)
[2020-12-16 17:03] LABS: PCO2 Arterial 36 mmHg (35-45); PO2 Arterial 67 mmHg (80-100)
[2020-12-16 17:08] LABS: ALT 30 U/L (7-52); Albumin 3.7 g/dL (3.2-5.2); Alkaline Phosphatase 243 U/L (35-149); Blood Urea Nitrogen 27 mg/dL (6-24); CO2 Carbon Dioxide 26 mmol/L (22-32); Calcium 9.5 mg/dL (8.6-10.3); Chloride 103 mmol/L (101-111); EGFR African American 77.1 (>60); EGFR Non-African American 63.7 (>60); Globulin 3.7 g/dL (2-4); Glucose 179 mg/dL (70-100); Sodium 137 mmol/L (135-145); Total Protein 7.4 g/dL (6.4-8.9)
[2020-12-16 17:13] LABS: Anion Gap 8 mmol/L (2-11)
[2020-12-16] MEDS ORDERED: Furosemide 40 mg/4 ml IV VIAL IV ONE (18:17)
[2020-12-16] MEDS ORDERED: Iodixanol (CONTRAST) 320 MG/ML 100 ML SDV IV ONE (18:18)
[2020-12-16 18:24] LABS: AST Redraw 20 U/L (13-39); Potassium Redraw 4.4 mmol/L (3.5-5.0)
[2020-12-16] MEDS ORDERED: Dextrose 50% Syringe 50 ml 25 GM/50 ML SYRINGE IV PUSH PRN (18:26)
[2020-12-16 18:54] LABS: Troponin I 0.03 ng/mL (<0.03)
[2020-12-16] MEDS: methylPREDNISolone SOD 40 mg/ml 1 ml VIAL IV SCH (19:47)
[2020-12-16] MEDS: PIRFENIDONE 801 MG PO SCH (21:00)
[2020-12-16] MEDS: Enoxaparin 40 MG/0.4 ML SYR SUBCUT SCH (21:16)
[2020-12-16] MEDS: Insulin GLARGINE 100 un/ml 10 ml VIAL SUBCUT SCH (21:16)
[2020-12-16 21:47] LABS: Anion Gap 6 mmol/L (2-11); Blood Urea Nitrogen 28 mg/dL (6-24); CO2 Carbon Dioxide 31 mmol/L (22-32); Calcium 9.4 mg/dL (8.6-10.3); Chloride 102 mmol/L (101-111); EGFR African American 74.1 (>60); EGFR Non-African American 61.2 (>60); Glucose 139 mg/dL (70-100); Potassium 4.4 mmol/L (3.5-5.0); Sodium 139 mmol/L (135-145)
[2020-12-16 21:50] LABS: Troponin I 0.03 ng/mL (<0.03)
[2020-12-17] MEDS: methylPREDNISolone SOD 40 mg/ml 1 ml VIAL IV SCH ×3 (04:18→21:10)
[2020-12-17 04:34] LABS: Hematocrit 38 % (42-52); Hemoglobin 12.5 g/dL (14.0-18.0); Mean Corpuscular HGB Conc 33 g/dL (31-36); Mean Corpuscular Hemoglobin 30 pg (27-31); Mean Corpuscular Volume 91 fL (80-94); Mean Platelet Volume 7.6 fL (7.4-10.4); Platelet Count 287 10^3/uL (150-450); Red Cell Distribution Width 16 % (10-15); White Blood Count 6.4 10^3/uL (3.5-10.8)
[2020-12-17 04:52] LABS: Calcium 8.8 mg/dL (8.6-10.3); EGFR African American 73.3 (>60); EGFR Non-African American 60.6 (>60)
[2020-12-17] MEDS: Tiotropium Brom/Olodaterol MDI INH SCH (07:48)
[2020-12-17] MEDS: PIRFENIDONE 801 MG PO SCH ×2 (07:59→14:13)
[2020-12-17] MEDS: Aspirin EC 81 mg TAB.EC (enteric coated) PO SCH (08:30)
[2020-12-17 17:13] LABS: Glucose Confirmatory 417 mg/dL (70-100)
[2020-12-17] MEDS ORDERED: Dextrose 50% Syringe 50 ml 25 GM/50 ML SYRINGE IV PUSH PRN (17:41)
[2020-12-17] MEDS: Insulin GLARGINE 100 un/ml 10 ml VIAL SUBCUT SCH (21:10)
[2020-12-17] MEDS: Enoxaparin 40 MG/0.4 ML SYR SUBCUT SCH (21:10)
[2020-12-17] MEDS: ESBRIET 267 MG PO SCH (21:18)
[2020-12-17] MEDS ORDERED: Furosemide 40 mg/4 ml IV VIAL IV ONE (22:14)
[2020-12-18] MEDS: methylPREDNISolone SOD 40 mg/ml 1 ml VIAL IV SCH (03:48)
[2020-12-18 04:36] LABS: ABS Lymphocytes 0.9 10^3/ul (1.0-4.8); ABS Monocytes 0.4 10^3/ul (0-0.8); ABS Neutrophils 9.1 10^3/ul (1.5-7.7); Hematocrit 36 % (42-52); Hemoglobin 11.9 g/dL (14.0-18.0); Lymphocyte % 8.3 %; Mean Corpuscular HGB Conc 33 g/dL (31-36); Mean Corpuscular Hemoglobin 30 pg (27-31); Mean Corpuscular Volume 90 fL (80-94); Mean Platelet Volume 7.6 fL (7.4-10.4); Platelet Count 312 10^3/uL (150-450); Red Blood Count 4.02 10^6 /uL (4.18-5.48); Red Cell Distribution Width 16 % (10-15); White Blood Count 10.5 10^3/uL (3.5-10.8)
[2020-12-18 04:58] LABS: Calcium 8.9 mg/dL (8.6-10.3); EGFR African American 68.7 (>60); EGFR Non-African American 56.7 (>60); Magnesium 1.6 mg/dL (1.9-2.7); Phosphorus 4.2 mg/dL (2.5-5.0); Potassium 4.8 mmol/L (3.5-5.0)
[2020-12-18] MEDS ORDERED: Magnesium Sulfate 2 gm BAG 2 GM/50 ML BAG IVPB ONE ×2 (05:44→07:59)
[2020-12-18] MEDS: Aspirin EC 81 mg TAB.EC (enteric coated) PO SCH (08:46)
[2020-12-18] MEDS: ESBRIET 267 MG PO SCH ×3 (08:48→18:32)
[2020-12-18] MEDS: Tiotropium Brom/Olodaterol MDI INH SCH (09:04)
[2020-12-18] MEDS ORDERED: Dextrose 50% Syringe 50 ml 25 GM/50 ML SYRINGE IV PUSH PRN (15:43)
[2020-12-18] MEDS ORDERED: Insulin GLARGINE 100 un/ml 10 ml VIAL SUBCUT ONE (15:44)
[2020-12-18] MEDS ORDERED: Insulin GLARGINE 100 un/ml 10 ml VIAL ONE (15:49)
[2020-12-18 18:33] LABS: Adenovirus Undetected (Undetected); Bordetella parapertussis Undetected (Undetected); Bordetella pertussis Undetected (Undetected); Chlamydophila pneumoniae Undetected (Undetected); Coronavirus 229E Undetected (Undetected); Coronavirus HKU1 Undetected (Undetected); Coronavirus NL63 Undetected (Undetected); Coronavirus OC43 Undetected (Undetected); Human Metapneumovirus Undetected (Undetected); Human Rhinovirus/Enterovirus Undetected (Undetected); Influenza A Undetected (Undetected); Influenza B Undetected (Undetected); Mycoplasmoides pneumoniae Undetected (Undetected); Parainfluenza Virus 1 Undetected (Undetected); Parainfluenza Virus 2 Undetected (Undetected); Parainfluenza Virus 3 Undetected (Undetected); Parainfluenza Virus 4 Undetected (Undetected); Respiratory Syncytial Virus Undetected (Undetected); Specimen Source NASOPHARYNGEAL SWAB
[2020-12-18] MEDS: Insulin GLARGINE 100 un/ml 10 ml VIAL SUBCUT SCH (20:40)
[2020-12-18] MEDS: Enoxaparin 40 MG/0.4 ML SYR SUBCUT SCH (20:40)
[2020-12-19 05:29] LABS: Hematocrit 40 % (42-52); Hemoglobin 12.7 g/dL (14.0-18.0); Mean Corpuscular HGB Conc 32 g/dL (31-36); Mean Corpuscular Hemoglobin 29 pg (27-31); Mean Corpuscular Volume 91 fL (80-94); Mean Platelet Volume 7.5 fL (7.4-10.4); Platelet Count 356 10^3/uL (150-450); Red Blood Count 4.39 10^6 /uL (4.18-5.48); Red Cell Distribution Width 16 % (10-15); White Blood Count 12.3 10^3/uL (3.5-10.8)
[2020-12-19 05:44] LABS: Calcium 9.1 mg/dL (8.6-10.3); EGFR African American 74.8 (>60); EGFR Non-African American 61.8 (>60); Magnesium 2.2 mg/dL (1.9-2.7); Phosphorus 3.9 mg/dL (2.5-5.0); Potassium 4.5 mmol/L (3.5-5.0)
[2020-12-19] MEDS: ESBRIET 267 MG PO SCH ×3 (09:21→21:10)
[2020-12-19] MEDS: Aspirin EC 81 mg TAB.EC (enteric coated) PO SCH (09:21)
[2020-12-19] MEDS: Enoxaparin 40 MG/0.4 ML SYR SUBCUT SCH (21:09)
[2020-12-19] MEDS: Insulin GLARGINE 100 un/ml 10 ml VIAL SUBCUT SCH (21:09)
[2020-12-20 06:42] LABS: ABS Eosinophils 0.1 10^3/ul (0-0.6); ABS Lymphocytes 1.9 10^3/ul (1.0-4.8); ABS Monocytes 0.7 10^3/ul (0-0.8); ABS Neutrophils 6.3 10^3/ul (1.5-7.7); Eosinophil % 0.7 %; Hematocrit 36 % (42-52); Hemoglobin 11.9 g/dL (14.0-18.0); Lymphocyte % 20.9 %; Mean Corpuscular HGB Conc 33 g/dL (31-36); Mean Corpuscular Hemoglobin 29 pg (27-31); Mean Corpuscular Volume 89 fL (80-94); Mean Platelet Volume 7.1 fL (7.4-10.4); Platelet Count 309 10^3/uL (150-450); Red Blood Count 4.06 10^6 /uL (4.18-5.48); Red Cell Distribution Width 16 % (10-15)
[2020-12-20 07:00] LABS: EGFR Non-African American 67.8 (>60); Potassium 4.7 mmol/L (3.5-5.0)
[2020-12-20] MEDS: Tiotropium Brom/Olodaterol MDI INH SCH ×2 (07:19→08:32)
[2020-12-20] MEDS: Aspirin EC 81 mg TAB.EC (enteric coated) PO SCH (08:12)
[2020-12-20] MEDS: ESBRIET 267 MG PO SCH ×3 (08:21→21:08)
[2020-12-20] MEDS ORDERED: Furosemide 40 mg/4 ml IV VIAL IV ONE (10:31)
[2020-12-20] MEDS: Enoxaparin 40 MG/0.4 ML SYR SUBCUT SCH (21:09)
[2020-12-20] MEDS: Insulin GLARGINE 100 un/ml 10 ml VIAL SUBCUT SCH (21:09)
[2020-12-21 05:39] LABS: ABS Eosinophils 0.1 10^3/ul (0-0.6); ABS Lymphocytes 2.5 10^3/ul (1.0-4.8); ABS Monocytes 0.8 10^3/ul (0-0.8); ABS Neutrophils 6.5 10^3/ul (1.5-7.7); Eosinophil % 1.2 %; Hematocrit 38 % (42-52); Hemoglobin 12.4 g/dL (14.0-18.0); Lymphocyte % 24.9 %; Mean Corpuscular HGB Conc 33 g/dL (31-36); Mean Corpuscular Hemoglobin 29 pg (27-31); Mean Corpuscular Volume 89 fL (80-94); Mean Platelet Volume 7.4 fL (7.4-10.4); Platelet Count 309 10^3/uL (150-450); Red Blood Count 4.21 10^6 /uL (4.18-5.48); Red Cell Distribution Width 16 % (10-15)
[2020-12-21 05:54] LABS: Calcium 9.4 mg/dL (8.6-10.3); EGFR African American 87.6 (>60); EGFR Non-African American 72.4 (>60); Potassium 4.5 mmol/L (3.5-5.0)
[2020-12-21] MEDS: Tiotropium Brom/Olodaterol MDI INH SCH (08:24)
[2020-12-21] MEDS: ESBRIET 267 MG PO SCH ×3 (09:34→20:38)
[2020-12-21] MEDS: Aspirin EC 81 mg TAB.EC (enteric coated) PO SCH (09:36)
[2020-12-21] MEDS: Enoxaparin 40 MG/0.4 ML SYR SUBCUT SCH (20:37)
[2020-12-21] MEDS: Insulin GLARGINE 100 un/ml 10 ml VIAL SUBCUT SCH (20:38)
[2020-12-22] MEDS: Tiotropium Brom/Olodaterol MDI INH SCH (07:49)
[2020-12-22] MEDS: Aspirin EC 81 mg TAB.EC (enteric coated) PO SCH (09:17)
[2020-12-22] MEDS: ESBRIET 267 MG PO SCH ×2 (09:19→14:37)
[2020-12-22] MEDS ORDERED: Polyethylene Glycol 3350 17 GM PACKET PO PRN (09:37)
[2020-12-22] MEDS ORDERED: Fluticasone NASAL SPRAY 50MCG 16 gm SPRAY BTL BOTH NARES SCH (10:00)
[2020-12-22 13:09] VITALS: BP 106/56
[2020-12-22] MEDS ORDERED: Flu vaccine *QUAD* 2021-22* 0.5 ML SYRINGE IM ONE (15:00)
== END 2020-12-22 14:55 | disposition home or self-care (01) | DRG 196 ==
LOC: ED 16:29 → ICU 18:03 → MED 12-20 10:30
PROVIDERS: ADMIT Internal Medicine; ATTEND Internal Medicine